=== PATIENT | male | born 1985 | race Caucasian/White ===

== ENCOUNTER 2019-12-25 08:16 | Emergency (ER) | payer OTHER, SELFPAY ==
[2019-12-25 08:22] VITALS: BP 153/99; PULSE 78; RESP 16; TEMP 36.6; O2SAT 100
--- NOTE | 2019-12-25 08:22 | ED.GENADULT ---
HPI - General Adult General Chief complaint: Dental/Oral Stated complaint: left side of face swollen/painful Time Seen by Provider: 12/25/19 08:24 Source: patient Mode of arrival: ambulatory Limitations: no limitations History of Present Illness HPI narrative: 34-year-old male patient presents to the [facility] with complaints of a swollen face and soreness to the left cheek. Patient states the pain does radiate up to the ear. Patient first states that he thought might have been an earache but also has some pain to the oral cavity to the upper back wisdom tooth. Patient states he has had his issues with his wisdom tooth before in the past. Patient denies any fevers, body aches or chills. Related Data Home Medications Medication Instructions Recorded Confirmed citalopram 20 mg PO DAILY 12/25/19 12/25/19 losartan 50 mg PO DAILY 12/25/19 12/25/19 Allergies Allergy/AdvReac Type Severity Reaction Status Date / Time Sulfa (Sulfonamide Allergy Unknown SEIZURES Verified 12/25/19 08:23 Antibiotics) Review of Systems Review of Systems: Narrative: CONSTITUTIONAL: Denies fever, chills, or sweats. EYES: Denies visual changes, redness, or discharge. ENT: Denies rhinorrhea, congestion, sore throat, or otalgia. Positive left facial swelling and soreness and left upper dental pain CARDIOVASCULAR: Denies chest pain, palpitations, or edema. RESPIRATORY: Denies cough or dyspnea. GASTROINTESTINAL: Denies abdominal pain, nausea, vomiting, or diarrhea. GENITOURINARY: Denies dysuria or hematuria. SKIN: Denies rash or itching. MUSCULOSKELETAL: Denies back pain, joint pain, or myalgia. NEUROLOGIC: Denies headache, numbness, or weakness. PSYCHIATRIC: Denies anxiety or depression. PMFSH Comments At the time of my signature I agree with nursing past medical history, surgical, social, and family history. There is no relevant family history pertinent to the presenting complaint. Exam Narrative: Exam Narrative: GENERAL: Well-appearing, well-nourished, and in no acute distress. HEAD: Normocephalic, atraumatic. EYES: PERRLA and EOMI. ENT: Nares clear, no rhinorrhea or epistaxis. Mucous membranes moist. Bilateral TMs are clear no erythema or foreign bodies to the canal. The back left upper molar does have some surrounding erythema and does appear to have an ulcer to the left cheek. There is some severe tenderness to the area along with swelling and erythema. No active drainage. No obvious abscess is palpated. NECK: Supple. No lymphadenopathy CHEST: Clear to auscultation. No respiratory distress. HEART: Regular rate and rhythm. No murmur heard. Normal peripheral pulses. ABDOMEN: Soft, nontender, nondistended, normal active bowel sounds. EXTREMITIES: Normal range of motion. No edema. SKIN: Warm, dry, no rash. NEURO: No focal deficits. Alert and oriented x3. Course Vital Signs Vital signs: Vital Signs Temperature 36.6 C 12/25/19 08:22 Pulse Rate 78 12/25/19 08:22 Respiratory Rate 16 12/25/19 08:22 Blood Pressure 153/99 H 12/25/19 08:22 Pulse Oximetry 100 12/25/19 08:22 Temperature 36.6 C 12/25/19 08:22 Pulse Rate 78 12/25/19 08:22 Respiratory Rate 16 12/25/19 08:22 Blood Pressure 153/99 H 12/25/19 08:22 Pulse Oximetry 100 12/25/19 08:22 Vital signs reviewed. The patient has been informed that they may have pre-hypertension or Hypertension based on a BP reading in the department. I recommend that the patient call the primary care provider listed on their discharge instructions or a physician of their choice this week to arrange follow up for further evaluation of possible pre-hypertension or Hypertension Medical Decision Making Differential Diagnosis Differential Diagnosis: Differential diagnosis: Dental caries, periodontal disease, avulsed tooth, tooth infections, mandibular infection, Burton's angiana, upper tooth infection, dry socket, gingivitis, acute necrotizing ulcerative gingivitis, sialolithia
== END 2019-12-25 08:40 | disposition home or self-care (01) ==
PROVIDERS: Emergency Provider Nurse Practitioner Family; PCP Internal Medicine
DX: K12.0 Recurrent oral aphthae (principal); K08.89 Other specified disorders of teeth and supporting structures; I10 Essential (primary) hypertension; K21.9 Gastro-esophageal reflux disease without esophagitis; F41.9 Anxiety disorder, unspecified
CPT/HCPCS: 99213; G0463